=== PATIENT | male | born 1985 | race Caucasian/White ===

== ENCOUNTER 2022-10-25 01:47 | Emergency (ER) | payer OTHER, SELFPAY ==
[2022-10-25 01:48] VITALS: BP 150/89; PULSE 98; RESP 16; TEMP 36.3; O2SAT 97; BMI 28.5
[2022-10-25] MEDS: Diphth,Pertuss(Acell),Tet Vac 0.5 ML Vial IM (02:30)
--- NOTE | 2022-10-25 02:38 | EDS_ITS ---
HPI History of Present Illness Chief Complaint: Laceration Informant: patient Narrative Narrative: Patient presents tonight just after a work-related minor injury to his left upper arm. He is right-hand dominant. 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 He denies any other injuries or neurologic symptoms or loss of function of his arm. Tetanus Immunization: >10 years PFSH PFS Medical History no medical history no medical history Home Medications NK 10/25/22 [History Last Taken Unknown] Allergy/AdvReac Type Severity Reaction Status Date / Time No Known Allergies Allergy Verified 10/25/22 01:48 Surgical History no surgical history Social History Smoking Status: Never smoker ROS ROS ED Constitutional Constitutional ED: Denies chills or fever(s) Musculoskeletal Musculoskeletal: Reports extremity pain; Denies neck pain Integumentary Reports wounds; Denies Abrasions or rash Neurologic Neurologic: Denies paresthesias or weakness EXAM Physical Exam Const Vital Signs: 10/25/22 01:48 Temperature 97.4 F L Temperature Source Temporal Pulse Rate 98 Respiratory Rate 16 Blood Pressure 150/89 H Blood Pressure Mean 109 Pulse Ox 97 Positive well nourished and well developed General Appearance ED: well developed and NAD Neck full ROM and supple Back/Spine normal ROM and normal to inspection Extremity Extremity Narrative: Laceration just proximal to the olecranon process posterior left upper arm, full range of motion, no bony tenderness, compartments all soft and nondistended. Neuro oriented x3, no focal motor deficits and no sensory deficits noted Sensorium / Orientation: alert Psych mental status grossly normal and thought process normal Skin Skin Narrative: 2 cm full-thickness skin laceration down to but not involving the subcutaneous tissue. Linear, clean, no foreign material, does not probe any deeper than it appears. This laceration is on the posterior aspect of the left upper arm, toward the elbow but not on the olecranon process. Rashes: no rashes MDM MDM MDM Narrative Medical decision making narrative: Laceration was repaired see the procedure note, after standard procedures he will be released to go back to work, laceration was dressed with bacitracin and given appropriate discharge instructions and follow-up for suture removal. Procedures Lacerations Left upper arm: Length: 2 cm Depth: Skin Shape: Linear Prep: Sterile Conditions and Chlorhexadine (Scrubbed thoroughly) Laceration repair: Lidocaine (1cc, plain 1%), Local and Skin sutures Number of Sutures/[place]: 2 Suture Information: Ethilon, Horizontal, Mattress and 4-0 Discharge Plan Triage Chief Complaint: Laceration ED Provider: Uziel Campbell Dx/Rx/DC Orders Clinical Impression: [id number] (DPT) vaccination administered at current visit, Laceration of left upper arm Instructions: ED Laceration Extremity Prescriptions: No Action NK Primary Care Provider: Care Physician,No Primary Referrals: [facility] [Group of Physicians] - 10-14 Days suture removal Disposition Disposition: Home, Self Care
[2022-10-25 03:11] VITALS: BP 145/80; PULSE 78; RESP 16; TEMP 36.9
== END 2022-10-25 03:17 | disposition home or self-care (01) ==
PROVIDERS: Emergency Provider Emergency Medicine; Visit Provider Emergency Medicine
DX: S41.112A Laceration without foreign body of left upper arm, initial encounter (principal); W26.8XXA Contact with other sharp object(s), not elsewhere classified, initial encounter; Y99.0 Civilian activity done for income or pay; Y92.63 Factory as the place of occurrence of the external cause; Z23 Encounter for immunization
CPT/HCPCS: 12001; 90471; 90715; 99283